=== PATIENT | male | born 1980 | race Two or more races ===

== ENCOUNTER 2019-05-22 15:32 | Emergency (ER) | payer MEDICAID, OTHER ==
[~2019-05-22] VITALS: Ht 188 cm; Wt 90.7 kg
[2019-05-22 16:01] VITALS: BP 132/87
[2019-05-22 17:11] LABS: APPEARANCE,URINE Clear (CLEAR); BILIRUBIN,URINE SMALL (NEGATIVE); BLOOD, URINE Negative Ery/uL (NEGATIVE); COLOR,URINE Yellow (YELLOW); KETONES,URINE Negative (NEGATIVE); LEUKOCYTE ESTERASE ,URINE Negative (NEGATIVE); NITRITE, URINE Negative (NEGATIVE); PROTEIN,URINE Negative (NEGATIVE); UGLUCOSE Negative (NEGATIVE); UROBILINOGEN,URINE 0.2 EU/dL (0.2)
[2019-05-25] MEDS ORDERED: OMEG1CAP PO (12:50)
== END 2019-05-22 18:12 | disposition home or self-care (01) ==
LOC: ER 15:43
DX: A63.8 Other specified predominantly sexually transmitted diseases (principal)
CPT/HCPCS: 81000-TC; 87491; 87591

== ENCOUNTER 2019-05-24 22:02 | Inpatient (IN) | payer MEDICAID, OTHER ==
[~2019-05-24] VITALS: Ht 188 cm; Wt 85.7 kg
--- NOTE | 2019-05-24 22:19 | NUR ---
Pt in bed. VS is taken. Pt placed on monitor.
[2019-05-24 23:15] LABS: BASOPHILS # (AUTO) 0.1 /CMM (0.0-0.2); EOSINOPHILS % (AUTO) 1.5 % (0.0-6.0); HEMATOCRIT 41 % (39-51); LYMPHOCYTES # (AUTO) 2.7 /CMM (0.8-4.8); LYMPHOCYTES % (AUTO) 44.4 % (20.0-44.0); MEAN CORPUSCULAR HGB CONC 34 g/dl (31.0-36.0); MEAN CORPUSCULAR VOLUME 94 fL (80-96); MONOCYTES # (AUTO) 0.6 /CMM (0.1-1.30); MONOCYTES % (AUTO) 9.4 % (2.0-12.0); NEUTROPHILS # (AUTO) 2.6 /CMM (1.8-8.9); NEUTROPHILS % (AUTO) 43.7 % (43.0-81.0); PLATELET COUNT (AUTO) 209 /CMM (150-450); RED BLOOD CELL COUNT(AUTO) 4.37 MIL/uL (4.5-6.0)
[2019-05-24 23:24] LABS: CALCIUM, SERUM 8.8 mg/dL (8.5-10.1); POTASSIUM 3.5 mmol/L (3.5-5.1)
[2019-05-25] MEDS ORDERED: ASPIRIN 81 MG TAB.CHEW ONE ×2 (02:15→02:21)
[2019-05-25] MEDS ORDERED: ASPIRIN EC 81 MG TABLET.DR PO ONE (02:20)
--- NOTE | 2019-05-25 02:24 | NUR ---
ADMINISTERED ASPIRIN 81MG/4TABS/PO CHEWABLE ORDERED.
[2019-05-25] MEDS ORDERED: ASPIRIN 81 MG TAB.CHEW PO ONE ×2 (02:30→09:00)
[2019-05-25] MEDS ORDERED: MORPHINE SULFATE INJ 2 MG/ML DISP.SYRIN IV PRN (03:00)
[2019-05-25] MEDS ORDERED: Z GUARD REMEDY 2 OZ OINT TP PRN (03:00)
[2019-05-25] MEDS ORDERED: MAG HYDROX/AL HYDROX/SIMETH 30 ML UDC PO PRN (03:00)
[2019-05-25] MEDS ORDERED: MAGNESIUM HYDROXIDE 30 ML UDC PO PRN (03:00)
[2019-05-25] MEDS ORDERED: ZOLPIDEM TARTRATE 5 MG TABLET PO PRN (03:00)
[2019-05-25] MEDS ORDERED: ONDANSETRON HCL/PF 4 MG/2 ML VIAL IVP PRN (03:00)
[2019-05-25] MEDS ORDERED: HYDROCODONE/APAP 5/325MG 1 EACH TABLET PO PRN (03:00)
[2019-05-25] MEDS ORDERED: ACETAMINOPHEN 325 MG TABLET PO PRN (03:00)
--- NOTE | 2019-05-25 03:23 | NUR ---
GRADUATE NURSE NOTE PT ARRIVED TO FLOOR VIA GURNEY ACCOMPANIED BY ER PERSONNEL. PT IN STABLE CONDITION A/O X4, WALKED TO BED WITH STEADY GAIT. NO SIGNS OF SOB OR DISTRESS, NO C/O PAIN. IV IN R AC IN PLACE S/L. PT REFUSES BODY TO BE ASSESSED, STATING THAT HIS SKIN IS IN TACT. ALL BELONGINGS ACCOUNTED FOR. ALL CURRENT NEEDS ATTENDED TO. BED LOW, LOCKED, UPPER RAILS UP, AND CALL LIGHT WITHIN REACH. WILL CONT. TO MONITOR.
[2019-05-25 04:00] VITALS: BP 119/67
--- NOTE | 2019-05-25 06:23 | NUR ---
BLIND LACER NOTE PT IN STABLE CONDITION A/O X4. NO SIGNS OF SOB OR DISTRESS, NO C/O PAIN. IV IN R AC IN PLACE S/L. ALL CURRENT NEEDS ATTENDED TO. BED LOW, LOCKED, UPPER RAILS UP, AND CALL LIGHT WITHIN REACH. WILL CONT. TO MONITOR AND ENDORSE TO NEXT SHIFT.
[2019-05-25 07:00] LABS: THYROID STIMULATING HORMONE 2.081 uIU/mL (0.358-3.74)
--- NOTE | 2019-05-25 07:21 | NUR ---
DIAMOND EXPERT OPENING NOTES RECEIVED PT IN BED, A/O X4, ASLEEP, EASILY AROUSED. PT TOLERATING RA, WITH ACUTE RESPIRATORY DISTRESS NOTED. PT DENIES ANY PAIN OR DISCOMFORT AT THIS MOMENT. PT ALSO DENIES ANY QUESTIONS AND CONCERNS. ON TELEMONITORING SB, WITH HR OF 50. PIV TO RAC G20, FLUSHED WITH NS, INTACT AND OPERATIONAL. PT KEPT COMFORTABLE. PT'S BED IN LOWEST, LOCKED POSITION WITH SR X2. CALL LIGHT WITHIN REACH. WILL CONTINUE PLAN OF CARE.
[2019-05-25 08:00] VITALS: BP 101/57
[2019-05-25] MEDS ORDERED: ASPIRIN 81 MG TAB.CHEW PO SCH (09:00)
--- NOTE | 2019-05-25 09:10 | NUR ---
RN NOTES PT SEEN AND EVALUATED BY SHARK BIOLOGIST/DR PATTERSON. NO NEW ORDERS NOTED AT THIS MOMENT. PT OK TO TRANSFER TO [place].
[2019-05-25] MEDS ORDERED: OMEG1CAP PO (12:50)
--- NOTE | 2019-05-25 14:00 | NUR ---
MS NASCAR DRIVER NOTES PT TO DISCHARGE HOME. PT A/O X4, AMBULATORY. TOLERATING RA, WITH NO ACUTE RESPIRATORY DISTRESS. PT DENIES ANY PAIN OR DISCOMFORT AT THE TIME OF DISCHARGE. PT'S SKIN INTACT, NO PICTURES TAKEN AND FILED ON THE CHART. REVIEWED AND SIGNED DISCHARGE INSTRUCTIONS AND INVENTORY LIST BY PT. PT HAS ALL HIS BELONGINGS. ALL NEEDS AND CARE ATTENDED. PIV TO RAC REMOVED AND APPLIED DRY DRESSING. PT LEFT THE UNIT AND ESCORTED TO THE LOBBY AT 1355. CN/MARCELINA AND INSIDE SALES DIRECTOR/CN AWARE OF DISCHARGE.
== END 2019-05-25 13:50 | disposition home or self-care (01) | DRG 203 ==
LOC: ER 22:17 → TELE 05-25 02:36 → MED 05-25 11:23
PROVIDERS: ADMIT Nurse Practitioner Acute Care; ATTEND Nurse Practitioner Acute Care
DX: M94.0 Chondrocostal junction syndrome [Tietze] (principal); E78.5 Hyperlipidemia, unspecified; F41.9 Anxiety disorder, unspecified
CPT/HCPCS: 36415; 71045-TC; 80048-TC; 80061-TC; 84443-TC; 84484-TC; 85025-TC; 87081-TC; 93307-TC; G0378

== ENCOUNTER 2019-10-04 12:12 | Emergency (ER) | payer MEDICAID, OTHER ==
[~2019-10-04] VITALS: Ht 190.5 cm; Wt 90.7 kg
[~2019-10-04 12:12] MED LIST: OMEG1CAP PO
[2019-10-04 12:22] VITALS: BP 133/81
== END 2019-10-04 12:51 | disposition home or self-care (01) ==
LOC: ER 12:17
DX: M26.602 Left temporomandibular joint disorder, unspecified (principal); F17.200 Nicotine dependence, unspecified, uncomplicated; E78.5 Hyperlipidemia, unspecified; Z60.2 Problems related to living alone; Z79.899 Other long term (current) drug therapy